=== PATIENT | female | born 1995 | race Caucasian/White ===

== ENCOUNTER 2016-11-06 18:32 | Emergency (ER) | payer BC ==
--- NOTE | ~2016-11-06 | EKG ---
PATIENT: ALIYAH HDEZ UNIT #: [id number] Ventricular Rate: 69 BPM Atrial Rate: 69 BPM P-R Interval: 160 ms QRS Duration: 82 ms Q-T Interval: 410 ms QTC Calculation(Bezet): 439 ms P Bryant: 22 degrees Calculated R Bryant: 30 degrees Calculated T Bryant: 10 degrees Diagnosis Line: Normal sinus rhythm Diagnosis Line: Normal ECG Diagnosis Line: No previous ECGs available Diagnosis Line: Confirmed by CHERISE FERREIRA MD ([id number]) on Diagnosis Line: 11/08/2016 8:04:00 AM INTERPRETING MD: HANNA BASS
--- NOTE | ~2016-11-06 | CR72 ---
[facility]. [facility] RADIOLOGY TEXT RESULTS PATIENT: ALIYAH HDEZ LOCATION: SED : [birth year] UNIT #: [id number] AGE: [address]: Justin Zapien MD SEX: F ORDER DR: [id number] [place] [id number] E MR#: [id number] Acc #: [id number] NAME: ALIYAH HDEZ : 1995 SEX: F STUDY DATE/TIME: 11/06/2016 20:02 UNIT: SED ROOM: STUDY DESCRIPTION: CR Chest Single View Portable Attending Physician: Justin Zapien M.D. Ordering Physician: Justin Zapien M.D. Primary Care Physician: Primary Care Physician No MEDICAL IMAGING REPORT This report is preliminary unless electronic signature is present. EXAM Single view of the chest dated 11/06/2016 at 2002 hours. COMPARISON None HISTORY Symptoms began 2 months . Patient has cough and chest pain. It was particularly noticed this morning. FINDINGS Single view of the chest was obtained. A single AP portable view of the chest shows both lungs to be clear. The heart is normal in size. The mediastinal contour is normal. No significant bone abnormalities are seen. IMPRESSION Normal portable chest. Dictated by... Grant De Oliveira M.D. THIS IS AN ELECTRONICALLY VERIFIED REPORT Grant De Oliveira M.D. at 11/07/2016 6:26 PM CPR/psc TD: 11/07/2016 01:41 JOB #: [id number] MEDICAL IMAGING REPORT [facility] RADIOLOGY TEXT RESULTS PATIENT: ALIYAH HDEZ LOCATION: SED : [birth year] UNIT #: [id number] AGE: [address]: Justin Zapien MD SEX: F ORDER DR: Page 1 of 1
[2016-11-06] MEDS ORDERED: ZOLOFT (18:51)
[2016-11-06 19:46] LABS: POC - CKMB <1.0 ng/mL (0.0-7.9); POC - MYOGLOBIN 53.6 ng/mL (0.0-169.0); POC - TROPONIN <0.05 ng/mL (<=0.05)
== END 2016-11-06 21:16 | disposition home or self-care (01) ==
LOC: SED 18:32
DX: M94.0 Chondrocostal junction syndrome [Tietze] (principal); F43.10 Post-traumatic stress disorder, unspecified; F03.90 Unspecified dementia, unspecified severity, without behavioral disturbance, psychotic disturbance, mood disturbance, and anxiety; Z88.0 Allergy status to penicillin
CPT/HCPCS: 36415; 71010; 82553; 83874; 84484; 93005; 99285